=== PATIENT | female | born 2000 | race Asian ===

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

== ENCOUNTER 2024-10-16 09:35 | Inpatient (IN) | payer MEDICAID, OTHER ==
[~2024-10-16] VITALS: Ht 157.5 cm; Wt 77.6 kg
[~2024-10-16 09:35] MED LIST: HYDR25TA83 PO
[2024-10-16 11:10] VITALS: O2SAT 99
[2024-10-16 11:20] LABS: BASOPHILS % (AUTO) 0.4 % (0.0-2.0); EOSINOPHILS % (AUTO) 0.1 % (1.0-6.0); HEMATOCRIT 43.6 % (36-46); HEMOGLOBIN 13.4 g/dL (12.0-16.0); LYMPHOCYTES # (AUTO) 1.9 K/uL (1.0-4.8); LYMPHOCYTES % (AUTO) 16.7 % (22.0-44.0); MEAN CORPUSCULAR HEMOGLOBIN 20.2 pg (26.0-34.0); MEAN CORPUSCULAR HGB CONC 30.6 G/dL (31.0-37.0); MEAN CORPUSCULAR VOLUME 66 fL (80-100); MONOCYTES # (AUTO) 0.7 K/uL (0.1-1.0); MONOCYTES % (AUTO) 6.1 % (2.0-9.0); NEUTROPHILS % (AUTO) 76.7 % (40.0-70.0); PLATELET COUNT (AUTO) 623 K/uL (150-450); RED BLOOD CELL COUNT(AUTO) 6.61 MIL/uL (4.00-5.20); RED CELL DISTRIBUTION WIDTH 15.7 % (11.5-14.5); WHITE BLOOD COUNT (AUTO) 11.7 K/uL (4.5-11.0)
[2024-10-16 11:24] LABS: ANION GAP 7 mmol/L (8-16); CALCIUM, TOTAL 9.9 mg/dL (8.8-10.5); CARBON DIOXIDE 26 mmol/L (22-29); CHLORIDE 104 mmol/L (98-107); CREATININE 0.79 mg/dL (0.60-1.30); GLOMERULAR FILTR. RATE CALC > 60 mL/min (>60); GLUCOSE,RANDOM 113 mg/dL (70-110); POTASSIUM 3.8 mmol/L (3.5-5.1); SODIUM SERUM 137 mmol/L (136-145); UREA NITROGEN, BLOOD 16 mg/dL (7-18)
[2024-10-16 11:38] LABS: ACETAMINOPHEN < 2 mcg/mL (10-30); ALANINE AMINOTRANSFERASE 17 U/L (12-78); ALBUMIN 4.3 g/dL (3.4-5.0); ALKALINE PHOSPHATASE 71 U/L (46-116); ASPARTATE AMINOTRANSFERASE 23 U/L (15-37); BILIRUBIN,TOTAL 0.8 mg/dL (0.1-1.0); HCG,QUANTITATIVE 1 mIU/mL (0-6); TOTAL PROTEIN, SERUM 8.9 g/dL (6.4-8.2)
[2024-10-16 11:42] LABS: ALCOHOL, BLOOD (SERUM) < 3 mg/dL (0-10)
[2024-10-16 11:47] LABS: SALICYLATE < 2.8 mg/dL (2.8-20.0)
[2024-10-16] MEDS ORDERED: ZOLPIDEM TARTRATE 10 MG TABLET PO PRN (12:15)
[2024-10-16] MEDS ORDERED: QUEtiapine FUMARATE 100 MG TABLET PO PRN (12:15)
[2024-10-16 12:18] LABS: COVID AG,FIA SOURCE NASAL SWAB
[2024-10-16 12:23] LABS: APPEARANCE,URINE HAZY (CLEAR); BILIRUBIN,URINE NEGATIVE (NEGATIVE); COLOR,URINE YELLOW (YELLOW); GLUCOSE, URINE (UA) NEGATIVE (NEGATIVE); LEUKOCYTE ESTERASE ,URINE MODERATE (NEGATIVE); NITRATE,URINE NEGATIVE (NEGATIVE); OCCULT BLOOD,URINE LARGE (NEGATIVE); PROTEIN,URINE 30-70 mg/dL (NEGATIVE); SPECIFIC GRAVITIY, URINE 1.028 (1.003-1.030)
[2024-10-16 12:35] LABS: ALCOHOL, URINE DRUG SCREEN NEGATIVE (NEGATIVE); AMPHET/METH SCREEN,URINE NEGATIVE (NEGATIVE); BARBITURATE SCREEN, URINE NEGATIVE (NEGATIVE); BENZODIAZEPINES SCREEN,URINE NEGATIVE (NEGATIVE); CANNABINOID SCREEN,URINE POSITIVE (NEGATIVE); COCAINE SCREEN,URINE NEGATIVE (NEGATIVE); METHADONE SCREEN, URINE NEGATIVE (NEGATIVE); OPIATE SCREEN,URINE NEGATIVE (NEGATIVE); PHENCYCLIDINE SCREEN,URINE NEGATIVE (NEGATIVE)
[2024-10-16 12:37] LABS: SARS-COV2 (COVID) ANTIGEN,FIA Negative (Negative)
[2024-10-16 12:39] LABS: BACTERIA,URINE Few /HPF (None Seen); RBC,URINE 51-100 /HPF (0-2); SQUAMOUS EPITHELIAL CELL,UR Few /LPF (None Seen)
[2024-10-16 15:26] VITALS: BP 121/96; PULSE 98; RESP 18; TEMP 98.3; O2SAT 97
[2024-10-16] MEDS: ESCITALOPRAM OXALATE 10 MG TABLET PO SCH (17:33)
[2024-10-16 20:13] VITALS: BP 121/86; PULSE 100; RESP 17; TEMP 97.8; O2SAT 95
[2024-10-17] MEDS ORDERED: MAGNESIUM HYDROXIDE SUSPENSION 30 ML UDCUP PO PRN (06:30)
[2024-10-17] MEDS ORDERED: PETROLATUM,WHITE 28 GM JELLY TP PRN (06:30)
[2024-10-17] MEDS ORDERED: BACITRACIN 28 GM OINTMENT TP PRN (06:30)
[2024-10-17] MEDS ORDERED: ALBUTEROL SULFATE HFA 90 MCG/PUFF 8 GM INHALER IH PRN (06:30)
[2024-10-17] MEDS ORDERED: ACETAMINOPHEN 325 MG TABLET PO PRN (06:30)
[2024-10-17] MEDS ORDERED: BENZOCAINE/MENTHOL [CEPACOL] LOZENGE PO PRN (06:30)
[2024-10-17] MEDS ORDERED: OMEPRAZOLE 20 MG CAPSULE PO PRN (06:30)
[2024-10-17] MEDS ORDERED: LOPERAMIDE HCL 2 MG CAPSULE PO PRN (06:30)
[2024-10-17] MEDS ORDERED: CloNIDine HCL 0.1 MG TABLET PO PRN (06:30)
[2024-10-17] MEDS ORDERED: ONDANSETRON 4 MG TABLET PO PRN (06:30)
[2024-10-17] MEDS ORDERED: DOCUSATE SODIUM 100 MG CAPSULE PO PRN (06:30)
[2024-10-17 08:32] VITALS: BP 121/83; PULSE 78; RESP 17; TEMP 98; O2SAT 100
[2024-10-17] MEDS: NITROFURANTOIN MONOHYD/M-CRYST 100 MG CAPSULE [MACROBID] PO SCH (10:53)
[2024-10-17 20:45] VITALS: BP 125/89; PULSE 85; RESP 18; TEMP 97.3; O2SAT 95
[2024-10-17] MEDS: IBUPROFEN 600 MG TABLET PO PRN (21:33)
[2024-10-17 21:35] VITALS: RESP 19; TEMP 97.3
[2024-10-17 21:38] VITALS: BP 148/93; O2SAT 96
[2024-10-18 08:32] VITALS: BP 121/84; PULSE 79; RESP 18; TEMP 97.6; O2SAT 98
[2024-10-18 09:05] LABS: HEMOGLOBIN A1C 5.2 % (3.8-5.6)
[2024-10-18 09:09] LABS: CHOL/HDL RATIO 2.5 (3.9-5.7)
[2024-10-18] MEDS ORDERED: ESCI-8 PO (18:05)
[2024-10-18 21:02] VITALS: BP 126/79; PULSE 78; RESP 18; TEMP 97.6; O2SAT 98
[2024-10-19] MEDS: LORazepam 2 MG TABLET PO PRN (05:48)
[2024-10-19 08:55] VITALS: BP 141/81; PULSE 91; RESP 16; TEMP 97; O2SAT 100
[2024-10-19] MEDS: NICOTINE POLACRILEX 2 MG LOZENGE PO PRN (14:19)
[2024-10-19 20:03] VITALS: BP 144/84; PULSE 106; RESP 18; TEMP 97.4; O2SAT 98
[2024-10-20 08:40] VITALS: BP 126/78; PULSE 96; RESP 18; TEMP 96.6; O2SAT 100
[2024-10-20] MEDS ORDERED: NITR-104 PO (11:53)
== END 2024-10-20 12:14 | disposition home or self-care (01) | DRG 751 ==
LOC: EMS 09:36 → B2S 12:47
PROVIDERS: ADMIT Psychiatry & Neurology Psychiatry; ATTEND Psychiatry & Neurology Psychiatry
PROC: GZHZZZZ Group Psychotherapy (ICD-10-PCS; principal; 2024-10-16)
PROC: GZ52ZZZ Individual Psychotherapy, Cognitive (ICD-10-PCS; 2024-10-19)
DX: F33.2 Major depressive disorder, recurrent severe without psychotic features (principal); R45.851 Suicidal ideations; E66.9 Obesity, unspecified; F12.10 Cannabis abuse, uncomplicated; F41.9 Anxiety disorder, unspecified; F10.90 Alcohol use, unspecified, uncomplicated; T50.992A Poisoning by other drugs, medicaments and biological substances, intentional self-harm, initial encounter; Y90.0 Blood alcohol level of less than 20 mg/100 ml; Z20.822 Contact with and (suspected) exposure to COVID-19; F43.10 Post-traumatic stress disorder, unspecified; G47.00 Insomnia, unspecified; Z79.899 Other long term (current) drug therapy; Z88.0 Allergy status to penicillin; Z91.51 Personal history of suicidal behavior; Y92.89 Other specified places as the place of occurrence of the external cause; Z68.31 Body mass index [BMI] 31.0-31.9, adult
CPT/HCPCS: 80048; 80061; 80076; 80307; 81001; 83036; 84702; 85025; 87086; 87147; 99285; G0480; G0481